=== PATIENT | female | born 2000 ===

== ENCOUNTER 2023-02-12 18:43 | Emergency (ER) | payer OTHER, SELFPAY ==
--- NOTE | ~2023-02-12 | XR_ITS ---
EXAMINATION: XR LUMBOSACRAL SPINE CLINICAL INFORMATION: Pain, fall. COMPARISON: None available. TECHNIQUE: Two views of the lumbosacral spine. FINDINGS: The vertebral bodies and posterior elements are normal. The disc spaces are preserved and the vertebral alignment is normal. The paraspinal soft tissues are normal. XR/XR lumbar spine 2-3V IMPRESSION: Unremarkable examination.
--- NOTE | ~2023-02-12 | XR_ITS ---
EXAMINATION: XR SACRUM AND COCCYX CLINICAL INFORMATION: Pain, fall. COMPARISON: None available. TECHNIQUE: 2 views of the sacrum and 2 views of the coccyx were obtained. FINDINGS: There are no fractures. No bone, joint or soft tissue abnormality is demonstrated. XR/XR sacrum coccyx min 2V IMPRESSION: Unremarkable examination.
--- NOTE | ~2023-02-12 | XR_ITS ---
EXAMINATION: XR FOOT, RIGHT CLINICAL INFORMATION: Pain, fall. COMPARISON: None available. TECHNIQUE: AP, lateral, and oblique views of the right foot. FINDINGS: The bones and soft tissues are normal. No fracture. Alignment is anatomic. Joint spaces are maintained. XR/XR foot RT min 3V IMPRESSION: Normal right foot.
[2023-02-12 18:57] VITALS: BP 138/75; PULSE 92; RESP 18; TEMP 36.1; O2SAT 95; BMI 17.7
--- NOTE | 2023-02-12 18:57 | ED.FALL ---
HPI - Fall General Chief Complaint: Back Pain/Injury Stated Complaint: fell Time Seen by Provider: 02/12/23 20:36 Source: patient Mode of arrival: ambulatory Limitations: no limitations History of Present Illness HPI Narrative: 23-year-old female presents to the ER for evaluation of lower back pain after she fell down some stairs yesterday. She states she tripped and fell down several stairs on her bottom. She did not hit her head or lose consciousness. She reports pain in her tailbone and low back. It is worse with movement, walking, difficulty finding a comfortable position. She also reports pain in her right foot and has some mild bruising to the lateral aspect of her right foot. She is ambulatory. She reports the pain is worse in her lower back. She has been putting pain patches on her back with minimal relief. MD complaint: fall Onset (ago): day(s) (1) Fall from: standing Fall witnessed: no Place fall occurred: home Loss of consciousness: none Prolonged down time: no Symptoms prior to fall: none Context: tripped/slipped Location of injury: back Location of injury - extremities: right: foot Severity: severe Quality: aching and spasming Associated symptoms (after fall): denies Related Data Previous Rx's Medication Instructions Recorded cyclobenzaprine 5 mg tablet 5 mg PO TID PRN muscle spasm #14 02/12/23 tabs ibuprofen 600 mg tablet 600 mg PO Q8H PRN pain #14 tabs 02/12/23 Allergies Allergy/AdvReac Type Severity Reaction Status Date / Time No Known Allergies Allergy Verified 02/12/23 18:58 Review of Systems Review of Systems: Yes all other systems are reviewed and are negative [facility] Social History Social History Advance Directives: No Advance Directives Information Provided: No Physical Exam Vital Signs: Vital Signs: Last Vital Signs Temp 97 F 02/12/23 18:57 Pulse 92 02/12/23 18:57 Resp 18 02/12/23 18:57 BP 138/75 02/12/23 18:57 Pulse Ox 95 02/12/23 18:57 O2 Del Method Room Air 02/12/23 18:57 BMI result Body Mass Index 17.7 Appearance: Alert. Oriented X3. No acute distress. HEENT: normal inspection CVS: Normal heart rate and rhythm. Pulses normal. Respiratory: No respiratory distress. Skin: Skin warm and dry. Normal skin color. Normal skin turgor. No rashes. Back: Normal inspection, no ecchymosis. Mild midline tenderness of the low lumbar and coccyx area. There is paravertebral muscle tenderness bilaterally with palpable spasm in the lumbar area. Extremities: Right foot with mild ecchymosis and tenderness of the 5th metatarsal, neurovascularly intact distally. Normal inspection of the right ankle. Neuro: Oriented X 3. No motor deficit. No sensory deficit. Ambulatory. Course Course Course Narrative: RME - 23-year-old female presents the ER for evaluation of low back pain, coccyx and right foot pain after she fell down some stairs yesterday. No head strike or LOC. Plan: X-ray of the lumbar spine, coccyx and right foot. Medical Decision Making Medical Decision Making MDM Narrative: 23-year-old female presents to the ER for evaluation of low back, coccyx and right foot pain after mechanical fall down some stairs yesterday. Her exam is unremarkable. Her imaging today of the sacrum, coccyx, lumbar spine, right foot are all unremarkable without any fractures identified. Pain is most likely due to contusion and muscle spasm. Will treat with NSAIDs and muscle relaxers. She was encouraged to follow up with her primary care doctor. Workup provided per request. Stable for discharge. Differential Diagnosis Differential Diagnoses: The differential diagnosis associated with the presentation includes Compression fracture, sacral fracture, coccyx fracture, contusion, foot fracture, foot contusion Independent Interpretation I performed an independent interpretation of an: Plain X-Ray Interpretation: No visible fractures of the lumbar spine, sacrum, coccyx, right foot. Agrees radiologist read. Radiology Impression Discussion of test interpretation with radiology: I have reviewed the radiologist's reading. Radiologist Impression: XR/XR sacrum coccyx min 2V IMPRESSION: Unremarkable examination. ?XR/XR lumbar spine 2-3V IMPRESSION: Unremarkable examination. XR/XR foot RT min 3V IMPRESSION: Normal right foot. External Record Review External record reviewed: Prior outpatient labs Prescription Management I considered prescription management with: Pain Medication Critical Care Time Critical Care Time Critical Care Time: No Discharge Plan Discharge Clinical Impression: Contusion of lower back Patient Disposition: Home, Self-Care Instructions: Acute Low Back Pain (ED), Contusion in Adults (ED) Additional Instructions: Your x-rays today were normal. Your pain is most likely due to contusion muscle strain and spasm. Take the prescribed medications as directed. Recommend ice and/or heat to the area whichever feels better. Rest, no strenuous activity. Follow-up with primary care doctor. If you develop new or worsening symptoms call 911 or come back to the ER for further evaluation. Prescriptions: New ibuprofen 600 mg tablet 600 mg PO Q8H PRN (Reason: pain) Qty: 14 0RF cyclobenzaprine 5 mg tablet 5 mg PO TID PRN (Reason: muscle spasm) Qty: 14 0RF Stand Alone Forms: Work/School Release Interventions: ED Discharge Assessment Last Done: 02/12/23 20:51 Discharge Date/Time: 02/12/23 20:51
== END 2023-02-12 20:51 | disposition home or self-care (01) ==
PROVIDERS: Emergency Provider Emergency Medicine
DX: S30.0XXA Contusion of lower back and pelvis, initial encounter (principal); S90.31XA Contusion of right foot, initial encounter; W10.8XXA Fall (on) (from) other stairs and steps, initial encounter; Y93.9 Activity, unspecified; Y92.9 Unspecified place or not applicable; Y99.9 Unspecified external cause status
CPT/HCPCS: 72100; 72220; 73630; 99282; 99283

== ENCOUNTER 2023-07-02 14:55 | Outpatient (AMB) | payer OTHER, SELFPAY ==
--- NOTE | 2023-07-02 14:58 | A.OFFVIS_ITS ---
Intake Vital Signs 07/02/23 14:59 Height 5 ft 3 in Weight 97 lb 3.582 oz BMI 17.2 BP 92/64 Blood Pressure Location Rt brachial Position Sitting Pulse 86 Pulse Source Pulse Oximeter Temp 97.7 F Temp Source Skin Pulse Oximetry (%) 98 Intake Visit Reasons: LBP Intake Note: New pt presents today for consult at the request of PCP. Hx of back pain for 10yrs, this has progressed over the last 5 years. Pain affects upper, thoracic and lumbar spine. Also has pain in knees. Started on Cymbalta to help with anxiety and pain. 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 Hx of back pain for 10yrs, this has progressed over the last 5 years. Pain affects upper, thoracic and lumbar spine. Also has pain in knees. Started on Cymbalta to help with anxiety and pain, states that it provide some relief but nothing significant. She has difficulty falling and staying asleep. She has gone to a chiropractor and a physical therapy without much relief. [facility]LY [facility], [facility] Medical History Anxiety Pain in joint, multiple sites Chronic bilateral thoracic back pain Chronic upper back pain Chronic bilateral low back pain with bilateral sciatica Surgical History No history of previous surgery Family History Other Family history of arthritis Family history of diabetes mellitus Social History Alcohol intake: current Alcohol intake frequency: does not drink Patient Tobacco Use Status: Never used Tobacco Current occupational status: employed Current occupation: [employer] Female Reproductive History Menstrual Total pregnancies: 0 Review of Systems Musc Reports back pain, Reports arthralgias and Reports stiffness Skin/Breast Reports unusual bruising Psych Reports abnormal sleep pattern and Reports anxiety Physical Exam Vital Signs: Last Vital Signs Temp 97.7 F 07/02/23 14:59 Pulse 86 07/02/23 14:59 BP 92/64 07/02/23 14:59 Pulse Ox 98 07/02/23 14:59 BMI result Body Mass Index 17.2 Const General: cooperative, healthy appearing and comfortable Nutritional Appearance: thin Orientation/consciousness: patient oriented x3 Limitations: no limitations HEENT Head: Yes normocephalic and Yes atraumatic Mouth: moist mucous membranes Resp Effort & Inspection: normal respiratory effort and able to speak in complete sentences Auscultation: clear to auscultation bilaterally Cardio Rate: regular rate Rhythm: regular rhythm GI Inspection: No distended Palpation (GI): Soft to palpation and nontender Skin General skin exam: no rashes or lesions noted Neuro General: patient oriented x3 Extrem Other: Hyper flexible thumbs Diffuse fibromyalgia tender points Normal nailfold capillaroscopy No active synovitis Assessment & Plan Assessment & Plan (1) Fibromyalgia, primary: Code(s): M79.7 - Fibromyalgia Plan: This is a 23-year-old female who presents for evaluation of diffuse pain. I do not see any evidence of an autoimmune rheumatic disease upon my evaluation. Discussed management of fibromyalgia with patient. Is a noninflammatory, non- autoimmune central afferent processing disorder leading to a diffuse pain syndrome. I suggested that patient try to address her underlying psychiatric issues, anxiety/depression. I suggested evaluation by a therapist and/or a psychiatrist. . Try to follow sleep hygiene practices. Consider a referral for a sleep study by her PCP. . Patient would benefit from increased physical activity, either through formal physical therapy or by joining a gym. Advised patient that she should start activity slowly and increase as tolerated. Consider low-impact exercises such as walking, swimming, aqua therapy stretching, yoga. Patient was recently started on duloxetine 20 mg daily by her PCP with mixed results. Different doses or different dose timing can be tried. Other meds can be tried in the future such as gabapentin, Lyrica or Savella. Follow-up with PCP. Follow-up with me as needed Plan I spent 22 minutes reviewing patient's chart, evaluating patient, counseling patient and documenting in the chart Coding Level of Care Code New Pt Level 3 (98201) Diagnoses Fibromyalgia, primary M79.7
[2023-07-02 14:59] VITALS: BP 92/64; PULSE 86; TEMP 36.5; O2SAT 98; BMI 17.2
== END 2023-07-02 15:36 | disposition home or self-care (01) ==
PROVIDERS: PCP Registered Nurse; Visit Provider Student in an Organized Health Care Education/Training Program
DX: M79.7 Fibromyalgia (principal)
CPT/HCPCS: 99203

== ENCOUNTER → 2023-07-02 14:55 | Outpatient (BNVA) | payer OTHER, SELFPAY | PROVIDERS: PCP Registered Nurse; Visit Provider Student in an Organized Health Care Education/Training Program ==

== ENCOUNTER 2024-12-09 16:59 | Outpatient (REF) | payer OTHER, SELFPAY | END 2024-12-09 17:00 | disposition home or self-care (01) | LOC: HO.HHCLNP 16:59 | PROVIDERS: Visit Provider Registered Nurse | DX: J02.9 Acute pharyngitis, unspecified (principal) | CPT/HCPCS: 87070 ==

== ENCOUNTER 2025-07-23 14:26 | Outpatient (REF) | payer OTHER, SELFPAY ==
--- NOTE | ~2025-07-23 | US_ITS ---
EXAMINATION: US PELVIS CLINICAL INFORMATION: Pelvic pain, 25-year-old female. LMP = 07/23/2025. COMPARISON: None available. TECHNIQUE: Ultrasound of the pelvis is performed using both transabdominal and transvaginal transducers along with Doppler. Transvaginal imaging is performed due to inadequate visualization transabdominally. FINDINGS: Uterus: The uterus is anteverted, anteflexed, and measures 6.3 x 3.1 x 4.0 cm. Cervix has a normal appearance. The double wall endometrial thickness is 6 mm. The uterus is smooth in contour and has normal myometrial echogenicity. No visible fibroid. Adnexa: Both ovaries are visualized. There is normal color flow to the adnexa. There is no ovarian torsion. There is trace amount of anechoic fluid in the cul-de-sac, likely physiologic. There are no adnexal masses. Right ovary measures 1.8 x 1.7 x 2.1 cm. Volume = 3.2 mL. Normal sonographic appearance. Left ovary measures 2.5 x 1.9 x 3.0 cm. Volume = 7.7 mL. Normal sonographic appearance. US/US pelvic and transvaginal IMPRESSION: 1. Normal pelvic ultrasound. Electronically signed by: Marcio Lorenzo MD 07/23/2025 02:54 PM [facility]
--- OUTSIDE RECORDS SUMMARY | 2025-07-23 16:05 | XMS_ITS | Encounter Summary ---
Author Organization [employer] Address [address] [facility] [address] [place] [address] Care Team Providers Care Manufacturing Analyst Name Role Phone Alysia Solomon MD Primary Care Provider [phone] Encounter Details Date Type Department Care Team ([facility] st Contact Info) Description 04/16/2023 Telephone [facility] [address] [place], [place] [id number] Alysia Solomon MD [address] [place], [place] [phone] Social History Tobacco Use Types Packs/Day Years Used Date Smoking Tobacco: Never Smokeless Tobacco: Never Alcohol Use Standard Drinks/Week Comments Never 0 (1 standard drink = 0.6 oz pur e alcohol) Depression Answer Date Recorded Patient Health Questionnaire-9 Score 14 03/07/2023 Comments No Sex and Gender Information Value Date Recorded Sex Assigned at Female 07/16/2022 10:37 AM EDT Legal Sex Female 10:37 AM EDT Gender Identity Female 07/16/2022 10:37 AM EDT Sexual Orientation Straight 07/16/2022 10 :37 AM EDT COVID-19 Exposure Response Date Recorded In the last 10 days, have yo u been in contact with someone who was confirmed or suspected to have Coronavirus/COVID-19? No / Unsure 03/20/2023 8:57 AM EDT documented as of this encounter Plan of Treatment Not on file documented as of this encounter Visit Diagnoses Not on filedocumented in this encounter Additional Health Concerns Assessment Noted Time PHQ-9 Depression Total Score: 14 023 4:12 PM EDT documented as of this encounter Care Teams Manufacturing Analyst Relationship Specialty Start Date End Date Alysia Solomon MD [address] [place] [address] PCP - General Family Medicine 04/02/23 documented as of this encounter
--- OUTSIDE RECORDS SUMMARY | 2025-07-23 16:05 | XMS_ITS | Encounter Summary ---
Author Organization [email or web address] Address [address] [place] [address] [address] [place] [address] Care Team Providers Care Credit And Collection Manager Name Role Phone Nia Reeves Primary Care Provider Alysia Griffith MD Primary Care Provider [phone] Encounter Details Date Type Department Care Team (Late st Contact Info) Description 12/13/2022 Orders Only [facility] [address] [place] [address] Cassandra Hanks LPN Social History Tobacco Use Types Packs/Day Years Used Date Smoking Tobacco: Never Smokeless Tobacco: Never Comments No Sex and Gender Information Value [...] suspected to have Coronavirus/COVID-19? No / Unsure 12/13/2022 1:59 PM EDT documented as of this encounter Plan of Treatment Not on file documented as of this encounter Visit Diagnoses Not on filedocumented in this encounter Care Teams Credit And Collection Manager Relationship Specialty Start Date End Date Nia Reeves FNP PCP - General Family Medicine 05/08/22 04/01/23 Alysia Solomon MD [address] [place] [id number] PCP - General Family Medicine 04/02/23 documented as of this encounter
--- OUTSIDE RECORDS SUMMARY | 2025-07-23 16:05 | XMS_ITS | Encounter Summary ---
Author Organization [employer] Address [address] [place] [address] [address] [place] [address] Care Team Providers Care Fur Blower Name Role Phone Nia Reeves Primary Care Provider Alysia Griffith MD Primary Care Provider [phone] Reason for Visit * Reason Onset Date Comments Referral 01/09/2023 Encounter Details Date Type Department Care Team ([facility] st Contact Info) Description 01/09/2023 Telephone [facility] [address] [place] [id number] Nia Reeves FNP Referral Social History Tobacco Use Types Packs/Day Years [...] PM EDT documented as of this encounter Miscellaneous Notes * Telephone Encounter - Jordyn Osorio - 01/09/2023 11:38 AM EDT Tc from pt requesting a referral for location : [facility] [address] [place] [address] PCP NP. Reeves documented in this encounter Plan of Treatment Not on file documented as of this encounter Visit Diagnoses Not on filedocumented in this encounter Care Teams Fur Blower Relationship Specialty Start Date End Date Nia Reeves FNP PCP - General Family Medicine 05/08/22 04/01/23 Alysia Solomon MD [address] [place] [address] PCP - General Family Medicine 04/02/23 documented as of this encounter
--- OUTSIDE RECORDS SUMMARY | 2025-07-23 16:05 | XMS_ITS | Clinical Summary ---
Author Organization [employer] Address [address] [place] [address] Care Team Providers Care Interlocking Tower Operator Name Role Phone Alysia Solomon MD Primary Care Provider Allergies No known active allergies Medications * This document contains information received from the source organization and may not represent a complete record from that organization. naproxen (Naprosyn) 500 MG tabletIndicatio ns:Chronic bilateral thoracic back pain,Chronic upper back pain,Chronic bilateral low back pain with bilateral sciatica Take 1 tablet (500 mg) by mouth with breakfast and with evening meal. 60 tablet 1 3 Active cyclobenzaprine (Flexeril) 5 MG tablet Take 5 mg by mouth if needed in the morning, at noon, and at bedtime. 3 Active ibuprofen 600 MG tablet Take 1 tablet by mouth every 8 (eight) hours if needed. 3 Active DULoxetine (Cymbalta) [address] capsule Take 1 capsule (20 mg) by mouth in the morning. Do not crush or chew. 60 capsule 5 3 Active lactase (Lactase Fast Acting) 9000 units tablet Take 1 tablet (9,000 mg) by mouth Once daily as needed (lactose containing foods). CHEW AND SWALLOW 1 TABLET WITH FIRST BITE OF FOOD containing dairy 90 tablet 1 4 Active Calcium Carbonate-Vitam in D 600-10 MG-MCG tablet Take 1 tablet by mouth Once per day. 90 tablet 3 5 Active Diclofenac Sodium 1 % gel Apply thin layer by topical route (quantity as directed on package insert) to affected area of pain 3 times daily as needed. 50 g 3 5 Active Active Problems Problem Noted Date Diagnosed Date Whole body pain 06/12/2023 Assessment & Plan (06/12/2023 2:50 PM EDT): Go to rheum appt Likely fibromyalgia Trial Cymbalta 20mg daily after dx confirmation (felt too much energy with 30mg capsule) [facility] [place] Loss of appetite 06/12/2023 Assessment & Plan (06/12/2023 2:51 PM EDT): Cyproheptadine 2mg with meals for appetite augmentation Anxiety 01/18/2023 Assessment & Plan (03/07/2023 4:35 PM EDT): Assessment: Khloe was engaged with active reflective listening and open-ended questions. Assessed symptoms, risks, and social supports with direct questions. Discussed current symptoms intensity and frequency. Emotions were normalized and validated. She identified walking as coping mechanisms. Provided psychoeducation around Coping skills for anxiety and depression. Discussed OP therapy, she agreed to referral. Provided education around integrated medicine and the options of follow up BE's as needed. Provided contact information should questions or concerns arise. Plan: Khloe will engage in effective coping mechanisms Provided. Will be referred to Ind. Therapy. Patient with sweating, unable to talk, crying spells, frustration, persistent worry, feeling anxious, trouble relaxing, trouble concentrating, irritability, fearfulness at time. She denies SI, HI, or self-harm. 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 Patient will benefit from Ind. Therapy. At this time Khloe Mar meets criteria for Visit Diagnoses: Problem List Items Addressed This Visit Other Anxiety Patient ready to address current needs Yes Strengths include Khloe is in action stage of change and her motivation will serve as treatment engagement. PLAN: 1. Follow up with [facility]: Not recommended for follow-up 2. Patient goal is learn skills to manage her sxs. 3. Behavioral Recommendations a. Ind. Therapy b. Use of Coping Skills Assessment & Plan (01/18/2023 6:26 PM EDT): Refer to arthralgia. Chronic thoracic back pain 01/17/2023 Arthralgia 01/17/2023 Assessment & Plan (01/18/2023 1:19 PM EDT): Patient had negative ccp, crp and sed rate 01/2022 We discussed that we needed evidence to send her to Rheumatology. She completely understood that. I also discussed that I was worried that if we did send her she is only going to get a diagnosis of fibromyalgia, she understood what that is and what I meant. So our plan is that she is going to talk to and work on stress management, go to PT and work on strengthening her body and we will draw labs and compare them to the ones she had a year ago. She was happy to have a plan. RA work up, patient to fu with PCP for potential referral to Rheum Lactose intolerance 03/22/2022 Dysmenorrhea 05/24/2021 Encounters Date Type Department Care Team Description 06/25/2025 2:45 PM EDT Office Visit [facility] [address] [place] [phone] Alysia Solomon MD Whole body pain (Primary Dx); Arthralgia, unspecified joint; Anxiety; Lactose intolerance; Screening for cervical cancer; Pelvic pain 06/25/2025 Travel 06/24/2025 Telephone [facility] [address] [place] [phone] Alysia Solomon MD chart prep 06/17/2025 Patient Outreach [facility] [address] [place] [phone] Alysia Solomon MD Pre-visit Planning (SDOH screening negative and tobacco screening negative) from Last 3 Months Immunizations Immunization Administration Dates Next Due Influenza Injectable Quadriv alant Preservative Free IIV4 MDCK 06/11/2023,06/05/2022,06/16/2021,2019 Td (adult), 5 Lf tetanus tox oid, preservative free, adsorbed 07/04/2020 Social History Tobacco Use Types Packs/Day Years Used Date Smoking Tobacco: Never Smokeless Tobacco: Never Tobacco Cessation:Counseling Given: Not Answered Alcohol Use Standard Drinks/Week Comments Never 0 (1 standard drink = 0.6 oz pur e alcohol) Alcohol Answer Date Recorded Frequency of Alcohol Consumption Not on file 06/12/2023 Average Number of Drinks Not on file 023 Frequency of Binge Drinking Not on file 05/18 Score 0 06/12/2023 Depression Answer Date Recorded Patient Health Questionnaire-9 Score 3 06/28/2025 Patient Health Questionnaire-9 Score 3 06/28/2025 Last PHQ-9: Questionnaire Data Not on file 1 Housing Stability Answer Date Recorded What is your housing situation today? I have karmen aydin 06/17/[address] you li ve. Do you have problems with any of the following? None of the above 06/17/2025 Food Insecurity Answer Date Recorded Within the past 12 months, y ou worried that your food would run out before you got money to buy more: Never True 06/17/2025 Within the past 12 months,th e food you bought just didn't last and you didn't have enough money to get more: Never True 10/2024 Transportation Answer Date Recorded In the past 12 months, has l ack of transportation kept you from medical appts, meetings, work or from getting things needed for daily living? No 06/17/2025 Utilities Answer Date Recorded In the past 12 months, has t he electric, gas, oil or water company threatened to shut off services in your home? No 06/17/2025 Depression Answer Date Recorded Patient Health Questionnaire-2 Score 1 06/28/2025 Internet Access Answer Date Recorded Internet Access Q1 Yes 06/17/2025 Internet Access Q2 Not on file 06/17/2025 Comments No Sex and Gender Information Value Date Recorded Sex Assigned at Female 07/16/2022 10:37 AM EDT Legal Sex Female 10:37 AM EDT Gender Identity Female 07/16/2022 10:37 AM EDT Sexual Orientation Straight 07/16/2022 10 :37 AM EDT Last Filed Vital Signs Vital Sign Reading Time Taken Comments Blood Pressure 90/58 06/25/2025 2:50 PM EDT Pulse 62 06/25/2025 2:50 PM EDT Temperature 36.1 C (96.9 F) 06/25/2025 2:50 PM EDT Respiratory Rate 20 06/25/2025 2:50 PM EDT Oxygen Saturation 99% 12/09/2024 10:42 AM EDT Inhaled Oxygen Concentration - - Weight 45 kg (99 lb 3.2 oz) 06/25/2025 2:50 PM E DT Height 149.9 cm (4' 11 ) 06/25/2025 2:50 PM EDT Body Mass Index 20.04 06/25/2025 2:50 PM EDT Plan of Treatment Health Maintenance Due Date Last Done Comments Disability Screening 1998 Alcohol/Substance Use Screening 2010 Family Planning (PISQ) 2013 HPV Vaccines (1 - 3-dose series) 2013 Hepatitis B Vaccines (1 of 3 - 19+ 3-dose series) 2017 DTaP/Tdap/Td Vaccines (1 - Tdap) 07/05/2020 07/04/2020 Pap Smear 05/24/2024 05/24/2021, 05/24/2021 COVID-19 Vaccine (3 - 2024- season) 2025 10/10/2020, 09/12/2020 Influenza Vaccine (#1) 2025 3, 06/05/2022, 06/16/2021, Additional history exists SDOH Screening 06/17/2026 06/17/2025 Depression Screening 06/28/2026 06/28/2025, 06/28/20 Tobacco Screening 06/28/2026 06/28/2025 Zoster Vaccines (1 of 2) 01/29/2048 RSV Patients and Patients Aged 60 years or older (1 - 1-dose 75+ series) 2073 HIV Screening Completed 02/07/2022 Hepatitis C Screening Completed 02/07/2022 HIB Vaccines Aged Out No longer eligi ble based on patient's age to complete this topic Hepatitis A Vaccines Aged Out No long er eligible based on patient's age to complete this topic IPV Vaccines Aged Out No longer eligi ble based on patient's age to complete this topic Meningococcal B Vaccine Aged Out No l onger eligible based on patient's age to complete this topic Meningococcal Vaccine Aged Out No nilda gina eligible based on patient's age to complete this topic Pneumococcal Vaccine: Pediatrics (0 to 5 Years) and At-Risk Patients (6 to 49) Years Aged Out No longer eligible based on patient's age to complete this topic RSV under 20 months Aged Out No longe r eligible based on patient's age to complete this topic Rotavirus Vaccines Aged Out No longer eligible based on patient's age to complete this topic Procedures Procedure Name Priority Date/Time Associated Diagnosis Comments US PELVIS TRANSVAGINAL Routine 07/23/2025 2:32 PM EST ZZZ HISTORICAL HEPATITIS C AB W/REFL TO HCV RNA, QN, PCR Routine 02/07/2022 8:05 AM EDT HIV 1/2 ANTIGEN/ANTIBODY, FOURTH GENERATION W/RFL Routine 02/07/2022 8:05 AM EDT PAP SMEAR Routine 05/24/2021 12:00 AM EDT from Last 3 Months or Most Recently Relevant to Health Maintenance Results * US Pelvis Transvaginal (07/23/2025 2:32 PM EST) Anatomical Region Laterality Modality Pelvis Ultrasound 07/23/2025 2:32 PM EST Narrative 07/23/2025 2:56 PM EST [facility] [address] [place] [address] [place] [address] Ultrasound Report Signed Patient: Khloe Faustin MR#: [id number] : 2000 Acct:[id number] Age/Sex: 25 / F ADM Date: 07/23/25 Loc: HO.HMGCX Attending Dr: Alysia Solomon MD Ordering Physician: Alysia Solomon Date of Service: 07/23/25 Procedure(s): US pelvic and transvaginal Accession Number(s): [id number] cc: Alysia Solomon Reason for Exam: pelvic pain EXAMINATION: US PELVIS CLINICAL INFORMATION: Pelvic pain, 25-year-old female. LMP = 07/23/2025. COMPARISON: None available. TECHNIQUE: Ultrasound of the pelvis is performed using both transabdominal and transvaginal transducers along with Doppler. Transvaginal imaging is performed due to inadequate visualization transabdominally. FINDINGS: Uterus: The uterus is anteverted, anteflexed, and measures 6.3 x 3.1 x 4.0 cm. Cervix has a normal appearance. The double wall endometrial thickness is 6 mm. The uterus is smooth in contour and has normal myometrial echogenicity. No visible fibroid. Adnexa: Both ovaries are visualized. There is normal color flow to the adnexa. There is no ovarian torsion. There is trace amount of anechoic fluid in the cul-de-sac, likely physiologic. There are no adnexal masses. Right ovary measures 1.8 x 1.7 x 2.1 cm. Volume = 3.2 mL. Normal sonographic appearance. Left ovary measures 2.5 x 1.9 x 3.0 cm. Volume = 7.7 mL. Normal sonographic appearance. US/US pelvic and transvaginal IMPRESSION: 1. Normal pelvic ultrasound. Electronically signed by: Marcio Lorenzo MD 07/23/2025 02:54 PM [facility] Dictated By: Marcio Lorenzo MD Signed By: <Electronically signed by Marcio Lorenzo MD in OV> 07/23/25 1454 DD/ 1432 TD/TT: 07/23/25 1448 Financial Systems Manager: Procedure Note Donotuseinterpreter, Image - 07/23/2025 [facility] [place] [address] Ultrasound Report Signed Patient: Tin Faustin#: [id number] : 2000Acct:[id number] Age/Sex: 25 / FADM Date: 07/23/25 Loc: HO.HMGCX Attending Dr: Alysia Solomon MD Ordering Physician: Alysia Solomon Date of Service: 07/23/25 Procedure(s): US pelvic and transvaginal Accession Number(s): [id number] cc: Alysia Solomon Reason for Exam: pelvic pain EXAMINATION: US PELVIS CLINICAL INFORMATION: Pelvic pain, 25-year-old female. LMP = 07/23/2025. COMPARISON: None available. TECHNIQUE: Ultrasound of the pelvis is performed using both transabdominal and transvaginal transducers along with Doppler. Transvaginal imaging is performed due to inadequate visualization transabdominally. FINDINGS: Uterus: The uterus is anteverted, anteflexed, and measures 6.3 x 3.1 x 4.0 cm. Cervix has a normal appearance. The double wall endometrial thickness is 6 mm. The uterus is smooth in contour and has normal myometrial echogenicity. No visible fibroid. Adnexa: Both ovaries are visualized. There is normal color flow to the adnexa. There is no ovarian torsion. There is trace amount of anechoic fluid in the cul-de-sac, likely physiologic. There are no adnexal masses. Right ovary measures 1.8 x 1.7 x 2.1 cm. Volume = 3.2 mL. Normal sonographic appearance. Left ovary measures 2.5 x 1.9 x 3.0 cm. Volume = 7.7 mL. Normal sonographic appearance. US/US pelvic and transvaginal IMPRESSION: 1. Normal pelvic ultrasound. Electronically signed by: Marcio Lorenzo MD 07/23/2025 02:54 PM [facility] Dictated By: Marcio Lorenzo MD Signed By: <Electronically signed by Marcio Lorenzo MD in OV> 07/23/25 1454 DD/ 1432 TD/TT: 07/23/25 1448 Financial Systems Manager: Alysia Solomon MD IM US PROCEDURES Final Result * HEPATITIS C AB W/REFL TO HCV RNA, QN, PCR (02/07/2022 8:05 AM EDT) HEPATITIS C ANTIBODY NON-REACT [place] NON-REACT [place] [facility] INDEX <0.02 <1.00 [facility] Comment: HCV antibody was non-reactive. There is no laboratory evidence of HCV infection. In most cases, no further action is required. However, if recent HCV exposure is suspected, a test for HCV RNA (test code 63186) is suggested. For additional information please refer to http://education.Medlumics.Fitwall/faq/SDZ93z9 (This link is being provided for informational/ educational purposes only.) 02/07/2022 8:05 AM EDT Ofelia CARMONAP HISTORICAL/NON ORDERABLE LABS Final Result Performing Organization Address City/[facility] Co de Phone Number [facility] [address] * HIV 1/2 ANTIGEN/ANTIBODY,FOURTH GENERATION W/RFL (02/07/2022 8:05 AM EDT) HIV-1/2 ANTIGEN AND ANTIBODIES, 4TH GENERATION W/ REFLEX NON-REACT [place] NON-REACT [place] [facility] Comment: HIV-1 antigen and HIV-1/HIV-2 antibodies were not detected. There is no laboratory evidence of HIV infection. PLEASE NOTE: This information has been disclosed to you from records whose confidentiality may be protected by state law. If your state requires such protection, then the state law prohibits you from making any further disclosure of the information without the specific written consent of the person to whom it pertains, or as otherwise permitted by law. A general authorization for the release of medical or other information is NOT sufficient for this purpose. For additional information please refer to http://education.Excorda/faq/VEN970 (This link is being provided for informational/ educational purposes only.) The performance of this assay has not been clinically validated in patients less than 2 years old. 02/07/2022 8:05 AM EDT Ofelia Millan BIOLOGICAL PLANT OPERATOR LAB BLOOD ORDERABLES Final Res ult Performing Organization Address [facility] Co de Phone Number [facility] [address] * Pap Smear (05/24/2021 12:00 AM EDT) Swab Historical Provider MD LAB CYTOLOGY ORDERABLES F inal Result Performing Organization Address [facility]/ZIP Co de Phone Number [facility] [address], [place] [address] from Last 3 Months or Most Recently Relevant to Health Maintenance Insurance [facility] , [address] [place] [address] Care Teams Interlocking Tower Operator Relationship Specialty Start Date End Date Alysia Solomon MD [address] [place] [phone] PCP - General Family Medicine 04/02/23
== END 2025-07-23 14:27 | disposition home or self-care (01) ==
LOC: HO.HMGCX 14:26
PROVIDERS: PCP General Practice; Visit Provider General Practice
DX: R10.20 Pelvic and perineal pain unspecified side (principal)
CPT/HCPCS: 76830; 76856

== ENCOUNTER → 2025-07-23 14:28 | Outpatient (BNV) | payer OTHER, SELFPAY | PROVIDERS: PCP General Practice; Visit Provider Radiology Diagnostic Radiology | DX: R10.20 Pelvic and perineal pain unspecified side (principal) | CPT/HCPCS: 76830; 76856 ==